=== PATIENT | female | born 1950 | race Caucasian/White ===

== ENCOUNTER 2018-07-23 10:41 | Observation (INO) | payer MEDICARE, OTHER ==
[~2018-07-23] VITALS: Ht 165.1 cm; Wt 87.3 kg
[~2018-07-23 10:41] MED LIST: ASPIRIN 81M81 MG/TA2 PO; ASPIRIN E.C. 8181 MG PO; BENICAR HCT 12.1 TA1 PO; BUDEPRION SR150 M1; CELEXA40 MG PO; DECADRON 1MG TAB1 MG PO; MULTIPLE VITAMI1 CAP PO; PRECOSE 25MG25 MG PO; PREMARIN VAG42.5 GM VG; PROGLYCEM PO; PROTONIX20 MG PO; XANAX 0.5MG0.5 MG PO; ZOCOR 20MG20 MG PO
[2018-07-23 10:58] LABS: BASO % 0.4 % (0.0-2.0); EOS # 0.1 (0.0-0.7); EOS % 1.3 % (0-4.0); GRAN # 5.3 (1.4-6.5); GRAN % 73.7 % (42.2-75.2); HEMATOCRIT 42.9 % (37.0-47.0); HEMOGLOBIN 14.6 g/dl (12.5-16.0); LYMPH # 1.1 (1.2-3.4); LYMPH % 15.8 % (20.0-51.0); MEAN CELL VOLUME 92 fl (80.0-100.0); MEAN CORPUSCULAR HEMOGLOBIN 31 pg (27.0-31.0); MEAN CORPUSCULAR HGB CONC 34 g/dl (33.0-37.0); MEAN PLATELET VOLUME 9.6 fl (7.4-10.4); MONO # 0.6 (0.1-0.6); MONO % 8.4 % (1.7-9.3); PLATELET COUNT 210 K/mm3 (130-400); RED BLOOD COUNT 4.65 M/mm3 (4.10-5.30); REDCELL DISTRIBUTION WIDTH-CV 12.9 % (11.5-14.5)
[2018-07-23] MEDS ORDERED: LEXAPRO20 MG PO (11:07)
[2018-07-23] MEDS ORDERED: WELLBUTRIN XL150 MG PO (11:07)
[2018-07-23] MEDS ORDERED: COZAAR100 MG PO (11:08)
[2018-07-23] MEDS ORDERED: HCTZ12.5TAB PO (11:08)
[2018-07-23] MEDS ORDERED: NORVASC 10MG10 MG PO (11:09)
[2018-07-23] MEDS ORDERED: IRON TABLETS325 MG PO (11:10)
[2018-07-23 11:11] LABS: ALANINE AMINOTRANSFERASE 43 U/L (9-52); ALBUMIN 4.6 gm/dL (3.5-5.0); ALKALINE PHOSPHATASE 68 U/L (50-136); ANION GAP 6 mmol/L (7-16); AST,SGOT 31 U/L (15-37); BILIRUBIN,TOTAL 0.7 mg/dL (0.0-1.0); BLOOD UREA NITROGEN 12 mg/dL (7-17); CALCIUM 9.4 mg/dL (8.4-10.2); CARBON DIOXIDE 32 mmol/L (22-30); CHLORIDE 97 mmol/L (98-107); CREATININE, serum 0.71 mg/dL (0.52-1.25); GLUCOSE 86 mg/dL (74-106); MAGNESIUM 1.7 mg/dL (1.6-2.3); PHOSPHOROUS 3.6 mg/dL (2.5-4.5); POTASSIUM 3.6 mmol/L (3.4-5.0); SODIUM 136 mmol/L (137-145); TOTAL PROTEIN 7.8 gm/dL (6.4-8.2)
[2018-07-23] MEDS ORDERED: BREO IH (11:11)
[2018-07-23] MEDS ORDERED: B-12 500 MCG PO (11:11)
[2018-07-23] MEDS ORDERED: VITAMIN D31000 I1 PO (11:11)
[2018-07-23 11:23] LABS: TROPONIN-I < 0.012 ng/mL (0.000-0.034)
[2018-07-23 15:00] VITALS: BP 130/55; PULSE 52; TEMP 98.7
[2018-07-23 19:35] VITALS: BP 123/47; PULSE 55; TEMP 97.4
[2018-07-23 23:25] VITALS: BP 140/49; PULSE 55; TEMP 98.3
[2018-07-24] VITALS (9 sets, daily range): BP systolic 128–147; BP diastolic 51–68; PULSE 50–67; TEMP 98–98.4
[2018-07-24 06:13] LABS: BASO % 0.6 % (0.0-2.0); EOS # 0.1 (0.0-0.7); EOS % 1.1 % (0-4.0); GRAN # 3.8 (1.4-6.5); GRAN % 69.7 % (42.2-75.2); HEMATOCRIT 40.7 % (37.0-47.0); HEMOGLOBIN 13.6 g/dl (12.5-16.0); LYMPH # 1.1 (1.2-3.4); LYMPH % 20.3 % (20.0-51.0); MEAN CELL VOLUME 92 fl (80.0-100.0); MEAN CORPUSCULAR HEMOGLOBIN 31 pg (27.0-31.0); MEAN CORPUSCULAR HGB CONC 33 g/dl (33.0-37.0); MEAN PLATELET VOLUME 10.5 fl (7.4-10.4); MONO # 0.4 (0.1-0.6); MONO % 8.1 % (1.7-9.3); PLATELET COUNT 213 K/mm3 (130-400); RED BLOOD COUNT 4.41 M/mm3 (4.10-5.30); REDCELL DISTRIBUTION WIDTH-CV 12.8 % (11.5-14.5)
[2018-07-24 06:20] LABS: CALCIUM 9.1 mg/dL (8.4-10.2); CREATININE, serum 0.7 mg/dL (0.52-1.25); POTASSIUM 4.2 mmol/L (3.4-5.0)
[2018-07-24] MEDS ORDERED: PROTONIX 40MG T40 MG PO (13:50)
== END 2018-07-24 15:25 | disposition home or self-care (01) ==
LOC: COL.ER 10:41 → MEDICAL 12:07
PROVIDERS: Emergency Medicine; Hospitalist
DX: R07.89 Other chest pain (principal); I10 Essential (primary) hypertension; E78.5 Hyperlipidemia, unspecified; G47.33 Obstructive sleep apnea (adult) (pediatric); Z87.891 Personal history of nicotine dependence; Z79.82 Long term (current) use of aspirin; Z79.899 Other long term (current) drug therapy
CPT/HCPCS: A9502; G0378; J2785; J7030

== ENCOUNTER → 2018-08-11 | Outpatient (CLI) | payer MEDICARE, OTHER ==
[~2018-08-11] MED LIST changes: +B-12 500 MCG PO; +BREO IH; +COZAAR100 MG PO; +HCTZ12.5TAB PO; +IRON TABLETS325 MG PO; +LEXAPRO20 MG PO; +NORVASC 10MG10 MG PO; +PROTONIX 40MG T40 MG PO; +VITAMIN D31000 I1 PO; +WELLBUTRIN XL150 MG PO
== END ==
LOC: COL.VAS 11:00
DX: I08.0 Rheumatic disorders of both mitral and aortic valves (principal)

== ENCOUNTER → 2018-10-02 | Outpatient (CLI) | payer MEDICARE | LOC: COL.RAD 13:36 | DX: M79.644 Pain in right finger(s) (principal) | CPT/HCPCS: J3301; Q9967 ==

== ENCOUNTER → 2019-07-18 | Outpatient (CLI) | payer MEDICARE | LOC: COL.RAD 10:22 | DX: M79.644 Pain in right finger(s) (principal) | CPT/HCPCS: J3301; Q9967 ==

== ENCOUNTER → 2020-12-17 | Outpatient (CLI) | payer MEDICARE | LOC: MHCPAIN 12:41 | DX: M47.816 Spondylosis without myelopathy or radiculopathy, lumbar region (principal); M53.3 Sacrococcygeal disorders, not elsewhere classified; M48.062 Spinal stenosis, lumbar region with neurogenic claudication; G89.29 Other chronic pain | CPT/HCPCS: G0463 ==

== ENCOUNTER → 2022-06-29 | Outpatient (CLI) | payer MEDICARE | LOC: MHCPAIN 15:20 | DX: M47.892 Other spondylosis, cervical region (principal); M54.12 Radiculopathy, cervical region; M54.2 Cervicalgia | CPT/HCPCS: G0463 ==